=== PATIENT | female | born 1970 | race African-American/Black ===

== ENCOUNTER 2019-05-24 23:22 | Emergency (ER) | payer OTHER ==
[~2019-05-24] VITALS: Ht 160 cm; Wt 113.4 kg
[2019-05-24 23:31] VITALS: Ht 160 cm; Wt 113.4 kg
[2019-05-25 02:05] VITALS: BP 159/89
== END 2019-05-25 02:05 | disposition home or self-care (01) ==
LOC: ED 23:22
DX: S83.92XA Sprain of unspecified site of left knee, initial encounter (principal); I10 Essential (primary) hypertension; Z88.0 Allergy status to penicillin; X50.1XXA Overexertion from prolonged static or awkward postures, initial encounter; Y93.89 Activity, other specified; Y92.89 Other specified places as the place of occurrence of the external cause; Y99.0 Civilian activity done for income or pay